=== PATIENT | female | born 1990 | race Hispanic/Latino ===

== ENCOUNTER 2020-05-10 14:37 | Emergency (ER) | payer SELFPAY ==
[~2020-05-10] VITALS: Ht 160 cm; Wt 63.5 kg
[2020-05-10] MEDS ORDERED: HYDROCODONE/APAP 5MG-325MG TAB PO ONE (15:30)
[2020-05-10] MEDS ORDERED: MORPHINE SULFATE INJ 4 MG/ML INJ 1ML IV STA (18:41)
[2020-05-10] MEDS ORDERED: MORPHINE SULFATE INJ 2 MG/ML SYR ONE (18:53)
[2020-05-10] MEDS ORDERED: ONDANSETRON HCL INJ 2MG/ML 2ML 2 MG/ML VIAL IV STA (20:04)
== END 2020-05-10 20:42 | disposition other institution (70) ==
LOC: ER 14:42
DX: S02.40DA Maxillary fracture, left side, initial encounter for closed fracture (principal); Y04.0XXA Assault by unarmed brawl or fight, initial encounter
CPT/HCPCS: 70450; 70486; 72125; 81025; 99284; J2270; J2405